=== PATIENT | female | born 1945 | race American Indian/Alaskan Native ===

== ENCOUNTER 2017-01-22 12:50 | Emergency (ER) | payer MEDICARE ==
[2017-01-22] MEDS ORDERED: DUONEB *Not for PRN Use IH ONE (13:22)
--- NOTE | 2017-01-22 13:25 | Emergency Department Report ---
Entered by MELLO DON, acting as scribe for NASRIN LOWE NP. Chief Complaint: Chest Pain Stated Complaint: CHEST PAIN/BLOOD CLOTS Time Seen by Provider: 01/22/17 13:14 - HPI History of Present Illness: 71 y/o female presents with SOB and chest pain that started a couple of days. Sx include right flank pain, back pain radiating down right leg, productive cough and FELDMAN. Medication includes Warfarin, Metaprolol, Gabapentin, Lisinopril. - ROS Review of Systems: +right flank pain +chest pain +SOB +back pain +productive cough +FELDMAN - Exam Physical Exam: Lungs: expiratory wheezing bilaterally Productive cough MSE screening note: Focused history and physical exam performed. Due to findings the following was ordered: ekg, labs, xr, neb ED Disposition for MSE Condition: Stable This documentation as recorded by the scribeARIAN RYAN,accurately reflects the service I personally performed and the decisions made by me,NASRIN LOWE , [employer] CONSULTANT.
[2017-01-22 13:55] LABS: Basophils % (Auto) 1.2 % (0.0-1.8); Eosinophils % (Auto) 0.3 % (0.0-4.3); Hemoglobin 15.1 gm/dl (10.1-14.3); Mean Corpuscular HGB Conc 33 % (30-34); Mean Corpuscular Hemoglobin 28 pg (28-32); Mean Corpuscular Volume 85 fl (79-97); Platelet Count 296 K/mm3 (140-440); Red Cell Distribution Width 15.4 % (13.2-15.2); White Blood Count 10.2 K/mm3 (4.5-11.0)
[2017-01-22 14:05] LABS: INR 1.26 (0.87-1.13)
[2017-01-22 14:06] LABS: Partial Thromboplastin Time 31.9 Sec. (24.2-36.6)
[2017-01-22 14:12] LABS: Alanine Aminotransferase 9 units/L (7-56); Albumin 4.5 g/dL (3.9-5); Albumin/Globulin Ratio 1.3 %; Alkaline Phosphatase 86 units/L (35-129); Anion Gap 25 mmol/L; BUN/Creatinine Ratio 18.75; Blood Urea Nitrogen 15 mg/dL (7-17); Calcium 10.4 mg/dL (8.4-10.2); Carbon Dioxide 20 mmol/L (22-30); Glucose 88 mg/dL (65-100); Lipase 43 units/L (13-60); Sodium 140 mmol/L (137-145)
--- NOTE | 2017-01-22 14:32 | XRay Report ---
CHEST 2 VIEWS INDICATION: Dyspnea. COMPARISON: None similar. FINDINGS: PA and lateral chest radiographs demonstrate normal cardiomediastinal silhouette. Aortic knob calcifications. Bilateral lung markings slightly prominent throughout. No pleural effusions or CHF. Left axillary surgical clips. Demineralized bones. CONCLUSION: No acute chest process, though subtle chronic interstitial lung disease not entirely excluded, as described. Please also correlate clinically and with prior chest imaging, if available. Thank you for the opportunity to participate in this patient's care.
[2017-01-22] MEDS ORDERED: MORPHINE IV ONE ×2 (15:16→20:03)
[2017-01-22] MEDS ORDERED: PROVENTIL IH ONE (15:16)
[2017-01-22] MEDS ORDERED: ATROVENT IH ONE (15:16)
[2017-01-22] MEDS ORDERED: MAGNESIUM SULFATE 2GM/50ML 2 GM/50 ML BAG IV ONE (15:16)
--- NOTE | 2017-01-22 15:19 | Emergency Department Report ---
ED General Adult HPI - General Chief complaint: Dyspnea/Respdistress Stated complaint: CHEST PAIN/BLOOD CLOTS Time Seen by Provider: 01/22/17 13:21 Source: patient, RN notes reviewed Mode of arrival: Ambulatory Limitations: Physical Limitation - History of Present Illness Initial comments: This is a 71-year-old female. She is previously unknown to me. Has a past medical history of pulmonary embolus, DVT, COPD, on lifelong anticoagulation. Patient also reports having a brain tumor surgery in 2000, reports history of heart attack with no stents. Patient presents to the ER complaining of right lower quadrant, right flank and right lower back pain that radiates down the right lower extremity. This pain is sharp. It started 3 days ago. It is constant. It worsens with palpation and range of motion. It decreases with rest. Patient also complains of chest tightness, cough, wheezing, shortness of breath. She reports compliance with her systemic anticoagulation. She also complains of nonspecific mild global throbbing headache. -: Gradual Location: head, chest, back, abdomen, right, lower extremity Radiation: extremity Quality: burning, aching Consistency: constant Improves with: rest Worsens with: movement Associated Symptoms: chest pain, cough, headaches, loss of appetite, malaise, shortness of breath, weakness - Related Data Allergies Allergy/AdvReac Type Severity Reaction Status Date / Time No Known Allergies Allergy Verified 01/22/17 15:49 ED Review of Systems ROS: Stated complaint: CHEST PAIN/BLOOD CLOTS Other details as noted in HPI Constitutional: malaise. denies: fever Eyes: denies: vision change ENT: denies: epistaxis Respiratory: cough, shortness of breath, wheezing Cardiovascular: dyspnea on exertion Gastrointestinal: abdominal pain Genitourinary: denies: dysuria Musculoskeletal: back pain, arthralgia, myalgia Skin: denies: lesions Neurological: weakness, numbness Psychiatric: anxiety ED Past Medical Hx - Past Medical History Hx Hypertension: Yes Hx CVA: Yes Hx Pulmonary Embolism: Yes Hx Headaches / Migraines: Yes Additional medical history: PE,DVT left arm,pneumonia x3 times,brain tumor 2000- removed benign - Surgical History Additional Surgical History: vein grafting,back surgery,mild heart attack no stents - Social History Smoking Status: Never Smoker Substance Use Type: None ED Physical Exam - General Limitations: No Limitations General appearance: alert, in distress - Head Head exam: Present: atraumatic, normocephalic - Eye Eye exam: Present: normal appearance, EOMI - ENT ENT exam: Present: normal exam, normal orophraynx, mucous membranes moist - Neck Neck exam: Present: normal inspection, full ROM - Respiratory Respiratory exam: Present: respiratory distress, rhonchi - Cardiovascular Cardiovascular Exam: Present: normal rhythm, tachycardia, normal heart sounds. Absent: systolic murmur, diastolic murmur, rubs, gallop - GI/Abdominal GI/Abdominal exam: Present: soft, tenderness, normal bowel sounds, other (there is right flank and right lower quadrant tenderness. There is no rebound, guarding or peritoneal signs). Absent: distended, guarding, rebound, rigid, pulsatile mass - Extremities Exam Extremities exam: Present: normal inspection, full ROM, normal capillary refill , other (full range of motion to the bilateral upper and lower extremity's. 2+ pulses noted in the bilateral upper and lower extremity. Left upper extremity demonstrates multiple scars which are chronic.). Absent: pedal edema, joint swelling, calf tenderness - Back Exam Back exam: Present: normal inspection, full ROM, CVA tenderness (R), paraspinal tenderness - Neurological Exam Neurological exam: Present: alert, oriented X3, other (Extraocular movements intact. Tongue midline. No facial droop. Facial sensation intact to light touch in the V1, V2, V3 distribution bilaterally. 5 and 5 strength in 4 extremities.. Sensation is intact to light touch in 4 extremities.). Absent: motor sensory deficit - Psychiatric Psychiatric exam: Present: anxious - Skin Skin exam: Present: warm, dry, intact, normal color. Absent: rash ED Course Vital Signs 01/22/17 01/22/17 01/22/17 13:13 15:13 15:21 Temperature 98 F Pulse Rate 112 H Pulse Rate [ 98 H 100 H Bilateral Upper Lobe] Respiratory 24 Rate Respiratory 20 20 Rate [Bilateral Upper Lobe] Blood Pressure 126/84 Blood Pressure [Left] O2 Sat by Pulse 100 Oximetry 01/22/17 01/22/17 01/22/17 15:26 15:49 18:45 Temperature Pulse Rate 115 H Pulse Rate [ 88 85 Bilateral Upper Lobe] Respiratory 16 Rate Respiratory 20 20 Rate [Bilateral Upper Lobe] Blood Pressure Blood Pressure 136/75 [Left] O2 Sat by Pulse 95 Oximetry - Reevaluation(s) Reevaluation #1: 01/22/17 15:22 differential diagnosis: Migraine headache, tension headache, cluster headache, intracranial hemorrhage, COPD exacerbation, pneumonia, pulmonary embolus, retroperitoneal hematoma, urinary tract infection, renal colic, appendicitis, AAA Assessment and plan: 71-year-old female with a primary complaint of abdominal pain that is tender, with a radicular component. Strength and sensation are intact, downgoing plantar reflexes, appropriate pulses, doubt epidural compression syndrome. She will be treated with pain medication. CT scan of the abdomen and pelvis is pending. Has a GCS of 15, with an NIH score of 0. Doubt intracranial injury, however given history of anticoagulation use, headache and nonspecific endorsed sensory symptoms, noncontrast CT scan of the brain is ordered. CT scan of the chest ordered given complaint of chest tightness, shortness of breath, cough and wheezing, although I highly suspect that the patient has a COPD exacerbation. She will be treated with albuterol, Atrovent, steroids, magnesium, and morphine. Reevaluation #2: 01/22/17 18:16 CT scan shows no pulmonary embolus. No significant intra- abdominal findings noted. There is a descending thoracic aorta intimal tear, without propagating dissection. I have paged out to cardiothoracic surgery at [facility] to discuss Reevaluation #3: 01/22/17 18:51 Cardiothoracic surgery, Dr. Keenan Curry, accepts patient as a transfer Patient is informed - EJ/Peripheral Line Neck L Time Out Performed: Yes Indications: multiple IV sites needed Skin Cleansed in Sterile Fashion: Yes Size: 18 Dressing Placed: Tegaderm Patient Tolerated Procedure: well ED Medical Decision Making - Lab Data Result diagrams: 01/22/17 13:33 01/22/17 13:33 - EKG Data -: EKG Interpreted by Me EKG shows normal: sinus rhythm, axis, intervals, QRS complexes, ST-T waves Rate: normal - EKG Data 01/22/17 15:25 normal sinus, 93 bpm, normal axis, QTC 447 ms, not morphologically consistent with stemi - Radiology Data Radiology results: report reviewed, image reviewed X-ray of the chest demonstrates no infiltrate. Chronic interstitial processes noted. CT scan of the brain negative for acute findings. CT scan of the chest, abdomen, pelvis report is reviewed. Critical care attestation.: If time is entered above; I have spent that time in minutes in the direct care of this critically ill patient, excluding procedure time. ED Disposition Clinical Impression: Injury of aorta, COPD exacerbation Disposition: DC/TX- SHRT-TRM GEN HOSP IP Is pt being admited?: No Does the pt Need Aspirin: No Condition: Good Instructions: Chronic Obstructive Pulmonary Disease (ED) Referrals: PRIMARY CARE, [Primary Care Provider] - 3-5 Days
[2017-01-22] MEDS ORDERED: NACL ONE (15:38)
--- NOTE | 2017-01-22 17:31 | Cat Scan Report ---
FINAL REPORT PROCEDURE: CT HEAD/BRAIN WO CON TECHNIQUE: Computerized tomography of the head was performed without contrast material. HISTORY: headache on coumadin COMPARISON: No prior studies are available for comparison. FINDINGS: Visualized portions of the paranasal sinuses and mastoid air cells are clear. Patient has had prior right-sided pterional craniotomy. Encephalomalacia is seen in the right frontal and temporal lobes, deep to the craniotomy defect. Moderate to prominent confluent hypodensities are seen in the supratentorial white matter. Findings are probably from chronic small vessel ischemic changes but consideration should be given to other causes of encephalopathy. No intracranial hemorrhage is seen. There is an 8.3 millimeter extra-axial calcific density in the left frontal region that may be an exostosis or meningioma. A 2nd similar, but smaller, structure is seen in the frontal convexity in the midline. IMPRESSION: Likely chronic ischemic changes are seen in the brain. White matter changes could possibly be from other causes of encephalopathy, though. No acute intracranial hemorrhage is seen. There is an 8.3 millimeter extra-axial calcific density in the left frontal region that may be an exostosis or meningioma. It has no significant mass effect. A similar but smaller extra-axial calcific density is seen in the frontal convexity.
[2017-01-22 17:52] LABS: Bacteria,Urine 1+ /HPF (Negative); Bilirubin,Urine NEG (Negative); Blood,Urine SM (Negative); Ketones,Urine NEG (Negative); Leukocyte Esterase,Urine MOD (Negative); Mucus,Urine FEW /HPF; Nitrite,Urine POS (Negative); Protein,Urine <15 mg/dL mg/dL (Negative); Urobilinogen,Urine < 2.0 mg/dL (<2.0)
--- NOTE | 2017-01-22 17:52 | Cat Scan Report ---
FINAL REPORT PROCEDURE: CT ANGIO CHEST TECHNIQUE: Computerized tomographic angiography of the chest was performed after the IV injection of iodinated nonionic contrast including image processing. The image data was postprocessed using 2-dimensional multiplanar reformatted (MPR) and 3-dimensional (MIP and/or volume rendered) techniques. HISTORY: sob abdomen pain COMPARISON: No prior studies are available for comparison. FINDINGS: There is a spiculated 7 millimeter nodule in the right lung apex medially. This is worrisome for possible malignancy. Mild hypoventilatory changes are seen in the dependent portions of the lungs. There is a 2 millimeter nodular density in the right upper lobe on image 33 of series 3. No mediastinal lymphadenopathy is seen. The heart and thoracic aorta are normal in size. There is a focal intimal plaque in the mid to lower descending thoracic aorta. This is located posteriorly and medially. No propagating dissection is seen. No pulmonary embolus is seen. IMPRESSION: 7 millimeter spiculated nodule in the right lung apex is worrisome for possible malignancy. Further evaluation with PET scan and/or biopsy is recommended. No pulmonary embolus is seen. There is focal intimal tear in the mid to distal descending thoracic aorta without a propagating dissection.
--- NOTE | 2017-01-22 18:02 | Cat Scan Report ---
FINAL REPORT PROCEDURE: CT ABDOMEN PELVIS W CON TECHNIQUE: Computerized axial tomography of the abdomen and pelvis was performed after the IV injection of iodinated nonionic contrast. HISTORY: abd pain sob COMPARISON: No prior studies are available for comparison. FINDINGS: Mild hypoventilatory changes are seen in the lower lungs. Focal intimal tear is seen in the lower thoracic aorta. Abdominal aorta is normal in size with mild diffuse calcified plaque. Spleen appears normal. There is likely mild fatty infiltration of the liver. Normal variant diminished enhancement is seen in the bare area of the liver. Gallbladder and pancreas display no abnormalities. Right adrenal gland appears normal. There is a low-density left adrenal nodule or cyst measuring 1.1 x 0.5 cm. Further evaluation with MRI is recommended. 3 millimeter cyst is suspected in the lower pole of the right kidney. Areas of scarring are seen in the left kidney. No renal or ureteral stones are seen. Bladder displays no abnormalities. Tiny left inguinal hernia is seen containing fat. Calcified and noncalcified uterine fibroids are seen measuring up to 3.4 cm in diameter. No adnexal masses are seen. No free pelvic fluid is seen. Appendix is not seen but no pericecal inflammation is seen. There is no evidence of bowel obstruction. Postoperative changes are seen in the lumbar spine. No suggestion of hardware failure is seen. IMPRESSION: Focal intimal tear is seen in the lower thoracic aorta without propagating dissection. Tiny left inguinal hernia is seen containing fat. Calcified and noncalcified uterine fibroids are seen measuring up to 3.4 cm in diameter. 1.1 cm cyst or nodule in the left adrenal gland should be further evaluated with MRI.
[2017-01-22] MEDS ORDERED: ROCEPHIN/NS 1 GM/50 ML 1 GM/50 ML BAG IV ONE (18:16)
[2017-01-22 18:46] VITALS: BP 136/75
== END 2017-01-22 23:08 | disposition short-term general hospital (02) ==
LOC: ED 12:50
DX: S25.00XA Unspecified injury of thoracic aorta, initial encounter (principal); J44.1 Chronic obstructive pulmonary disease with (acute) exacerbation; X58.XXXA Exposure to other specified factors, initial encounter; Y93.9 Activity, unspecified; Y92.9 Unspecified place or not applicable; Y99.9 Unspecified external cause status; I10 Essential (primary) hypertension; G43.909 Migraine, unspecified, not intractable, without status migrainosus; Z86.711 Personal history of pulmonary embolism
CPT/HCPCS: 36415; 36569; 70450; 71020; 71275; 74177; 80053; 81001; 82140; 83690; 83880; 84484; 85025; 85610; 85730; 93005; 93010; 94640; 96365; 96367; 96375; 96376; 99285; J0696; J2270; J2930; J3475; Q9967